=== PATIENT | female | born 1960 | race Caucasian/White ===

== ENCOUNTER 2018-09-02 09:08 | Inpatient (IN) | payer OTHER ==
[2018-09-02 10:00] LABS: ADD MAN DIFF? NO
[2018-09-02 10:03] LABS: BASOPHILS % 0.3 % (0.0-2.0); HEMATOCRIT 37.4 % (42.0-52.0); LYMPHOCYTES # 1.1 10^3/ul (0.8-2.9); LYMPHOCYTES % 15.6 % (15.0-51.0); MEAN CORPUSCULAR HEMOGLOBIN 31.3 pg (29.0-33.0); MEAN CORPUSCULAR HGB CONC 32.1 g/dl (32.0-37.0); MEAN CORPUSCULAR VOLUME 97.7 fl (82.0-101.0); MEAN PLATELET VOLUME 10.7 fl (7.4-10.4); MONOCYTE # 0.2 10^3/ul (0.3-0.9); MONOCYTES % 2.7 % (0.0-11.0); NEUTROPHIL # 5.6 10^3/ul (1.6-7.5); NEUTROPHILS % 80.5 % (39.0-77.0); PLATELET COUNT 261 10^3/UL (140-415); RED BLOOD COUNT 3.83 10^6/ul (4.70-6.10); RED CELL DISTRIBUTION WIDTH 12.9 % (11.5-14.5)
[2018-09-02] MEDS: ONDANSETRON 4 MG INJ IV (10:12)
[2018-09-02 10:28] LABS: ANION GAP 26 (5-13); BLOOD UREA NITROGEN 82 mg/dl (7-20); CARBON DIOXIDE 12 mmol/L (21-31); CHLORIDE 94 mmol/L (97-110); CHOL/HDL RATIO 4.5 RATIO; CHOLESTEROL 127 mg/dl (100-200); CREATININE 11.03 mg/dl (0.61-1.24); Estimated GFR 5 mL/min (>60); GLUCOSE 283 mg/dl (70-220); HDL CHOLESTEROL 28 mg/dl (30-78); LDL CHOLESTEROL,CALCULATED 61 mg/dl; SODIUM 132 mmol/L (135-144); TRIGLYCERIDES 189 mg/dl (0-149)
[2018-09-02 10:37] LABS: POTASSIUM 7.1 mmol/L (3.5-5.1)
[2018-09-02 10:38] LABS: ADD UMIC YES; UR ASCORBIC ACID NEGATIVE (NEGATIVE); UR BILIRUBIN (Dip) NEGATIVE (NEGATIVE); UR BLOOD (Dip) 1+ mg/dL (NEGATIVE); UR CLARITY CLEAR (CLEAR); UR COLOR STRAW (YELLOW); UR GLUCOSE (Dip) 3+ mg/dL (NEGATIVE); UR KETONES (Dip) 1+ mg/dL (NEGATIVE); UR LEUKOCYTE ESTERASE (Dip) NEGATIVE Leu/ul (NEGATIVE); UR NITRITE (Dip) NEGATIVE (NEGATIVE); UR RBC 1 /HPF (0-5); UR SPECIFIC GRAVITY (Dip) 1.007 (1.003-1.030); UR TOTAL PROTEIN (Dip) 1+ mg/dl (NEGATIVE); UR UROBILINOGEN (Dip) NEGATIVE (NEGATIVE); UR WBC 2 /HPF (0-5)
[2018-09-02 10:39] LABS: TROPONIN-I 0.074 ng/ml (0.000-0.120)
[2018-09-02 10:40] LABS: INR 1.19; PROTIME 15.2 Sec (11.9-14.9); PT RATIO 1.2
[2018-09-02 10:41] LABS: PARTIAL THROMBOPLASTIN TIME 29.2 Sec (23.0-35.0)
[2018-09-02] MEDS: CA CHLORIDE 10% 10 ML SYRINGE IV (10:48)
[2018-09-02] MEDS: INSULIN REGULAR, HUMAN 100 UNIT/1 ML 3ML VIAL IVP (10:48)
[2018-09-02] MEDS: DEXTROSE 50% 50 ML SYRINGE IV (10:49)
[2018-09-02] MEDS: SODIUM POLYSTYRENE 15 GM KIT (POWDER + SORBITOL) PO (10:49)
[2018-09-02] MEDS: NA BICARBONATE 8.4% 50 ML SYG IV (10:50)
[2018-09-02] MEDS ORDERED: ACETAMINOPHEN 325 MG TAB PO (11:00)
[2018-09-02] MEDS ORDERED: ONDANSETRON 4 MG INJ IV ×2 (11:00→11:30)
[2018-09-02] MEDS: ALBUTEROL 0.5% (NEB) 2.5 MG/0.5 ML AMP INH (11:01)
[2018-09-02 11:08] LABS: AMPHETAMINE/METHAMPHETAMINE NEGATIVE (NEGATIVE); BARBITURATES NEGATIVE (NEGATIVE); BENZODIAZEPINES NEGATIVE (NEGATIVE); CANNABINOIDS NEGATIVE (NEGATIVE); COCAINE NEGATIVE (NEGATIVE); OPIATES NEGATIVE (NEGATIVE)
[2018-09-02] MEDS ORDERED: MECLIZINE 25 MG TAB PO (11:30)
[2018-09-02] MEDS ORDERED: MECLIZINE 12.5 MG TAB PO (11:30)
[2018-09-02] MEDS: morphine 4 MG/ML VIAL IV (11:38)
[2018-09-02 11:41] LABS: HEMOGLOBIN A1C 8.1 % (0-5.9)
[2018-09-02 12:34] LABS: AADO2 Arterial 22.9 mmHg (7.0-24.0); Allen Test ACCEPTAB; Arterial Base Excess -18.7 mmol/L (-3.0-3); Arterial Blood Gas Oxygen Sat 94.6 mmHG (95.0-98.0); Arterial COHb 0.3 % (0.0-3.0); Arterial Fraction of Oxyhgb 93.8 % (93.0-99.0); Arterial HCO3 9.7 mmol/L (22.0-26.0); Arterial MetHb 0.5 % (0.0-1.5); Arterial pCO2 31.8 mmhg (35-45); MODE ROOM AIR; Site Right Radial
[2018-09-02 12:43] LABS: ANION GAP 30 (5-13); BLOOD UREA NITROGEN 83 mg/dl (7-20); CALCIUM 10.4 mg/dl (8.4-10.2); CHLORIDE 96 mmol/L (97-110); CREATININE 11.25 mg/dl (0.44-1.00); Estimated GFR 3 mL/min (>60); GLUCOSE 304 mg/dl (70-220); SODIUM 135 mmol/L (135-144)
[2018-09-02 12:45] LABS: POTASSIUM 5.3 mmol/L (3.5-5.1)
[2018-09-02 12:50] LABS: CARBON DIOXIDE 9 mmol/L (21-31)
[2018-09-02] MEDS ORDERED: GLUCOSE GEL 15 GRAM TUBE PO ×2 (13:00)
[2018-09-02] MEDS ORDERED: GLUCOSE GEL 15 GRAM TUBE BUCCAL (13:00)
[2018-09-02] MEDS ORDERED: GLUCAGON 1 MG INJ IM (13:00)
[2018-09-02] MEDS ORDERED: DEXTROSE 50% 50 ML SYRINGE IV (13:00)
[2018-09-02] MEDS: ISOSORBIDE MONONITRATE(SR)30 MG TAB PO (13:25)
[2018-09-02] MEDS: FAMOTIDINE 20 MG TAB PO (13:32)
[2018-09-02] MEDS: INSULIN ASPART [NOVOLOG] 3 ML PEN SC ×4 (13:32→21:24)
[2018-09-02] MEDS: ASPIRIN (EC) 81 MG TAB PO (13:32)
[2018-09-02] MEDS: METOPROLOL (XL) 100 MG TAB PO ×2 (13:33→20:49)
[2018-09-02] MEDS: OXYBUTYNIN (XL) 5 MG TAB PO (13:33)
[2018-09-02] MEDS: FENOFIBRATE 145 MG TAB PO (13:34)
[2018-09-02] MEDS: SOD CHLORIDE 0.9% 1,000 ML IV (13:39)
[2018-09-02] MEDS: AMLODIPINE 10 MG TAB PO (14:27)
[2018-09-02] MEDS ORDERED: FENTAnyl 50 MCG/ML VIAL (14:46)
[2018-09-02] MEDS ORDERED: LIDOCAINE 1% (MDV) 20 ML INJ (14:46)
[2018-09-02] MEDS ORDERED: MIDAZOLAM 1 MG/ML 2 ML INJ (14:46)
[2018-09-02] MEDS ORDERED: HEPARIN 1000 UNITS/ML 10 ML INJ (14:46)
[2018-09-02] MEDS ORDERED: HEPARIN 1000 UNITS/NS (A-LINE) 1,000 ML (14:46)
[2018-09-02] MEDS ORDERED: SODIUM CHLORIDE 0.9% 1L BAG IV (15:00)
[2018-09-02] MEDS ORDERED: HEPARIN 1000 UNITS/ML 10 ML INJ CATHETER (15:00)
[2018-09-02] MEDS ORDERED: ALBUMIN HUMAN 25% 100 ML IV (15:00)
[2018-09-02] MEDS: SODIUM BICARBONATE (IV ADD) 100 MEQ in SOD CHLORIDE 0.45% 900 ML IV (16:42)
[2018-09-02 17:19] LABS: POTASSIUM 6.1 mmol/L (3.5-5.1)
[2018-09-02] MEDS: ACARBOSE 50 MG TAB PO (18:00)
[2018-09-02] MEDS: ATORVASTATIN 10 MG TAB PO (20:49)
[2018-09-02] MEDS ORDERED: ZOLPIDEM 5 MG TAB PO (21:00)
[2018-09-02 21:04] LABS: HEPATITIS B SURFACE ANTIGEN NEGATIVE (NEGATIVE)
[2018-09-02] MEDS: MANNITOL 25% 50 ML IV (21:04)
[2018-09-02] MEDS: HEPARIN 1000 UNITS/ML 10 ML INJ CATHETER (23:30)
[2018-09-03] MEDS: SODIUM BICARBONATE (IV ADD) 100 MEQ in SOD CHLORIDE 0.45% 900 ML IV ×3 (01:00→21:00)
[2018-09-03 02:03] LABS: SODIUM,URINE RANDOM 92 mmol/L (30-90)
[2018-09-03 02:05] LABS: CREATININE,URINE RANDOM 30.51 mg/dl (20-320); PROTEIN/CREAT RATIO 2.26 RATIO
[2018-09-03 06:20] LABS: HAAIG REFLEX REFLEX FILED
[2018-09-03 06:49] LABS: BLOOD UREA NITROGEN 66 mg/dl (7-20); CALCIUM 8.9 mg/dl (8.4-10.2); CHLORIDE 98 mmol/L (97-110); CREATININE 7.75 mg/dl (0.44-1.00); Estimated GFR 5 mL/min (>60); GLUCOSE 198 mg/dl (70-220); POTASSIUM 4.8 mmol/L (3.5-5.1); SODIUM 139 mmol/L (135-144)
[2018-09-03 06:53] LABS: CREATINE KINASE 121 IU/L (23-200)
[2018-09-03 06:53] LABS: URIC ACID 9.2 mg/dl (3.1-7.9)
[2018-09-03] MEDS: LEVOTHYROXINE 75 MCG TAB PO (07:00)
[2018-09-03 07:11] LABS: HEPATITIS B SURFACE ANTIGEN NEGATIVE (NEGATIVE)
[2018-09-03 07:28] LABS: HEPATITIS B CORE ANTIBODY NEGATIVE (NEGATIVE); HEPATITIS C VIRAL ANTIBODY NEGATIVE (NEGATIVE); HIV 1&2 ANTIBODY NEGATIVE (NEGATIVE)
[2018-09-03 08:18] LABS: ANION GAP 16 (5-13)
[2018-09-03 08:20] LABS: CARBON DIOXIDE 25 mmol/L (21-31)
[2018-09-03] MEDS: FAMOTIDINE 20 MG TAB PO (08:30)
[2018-09-03] MEDS: ISOSORBIDE MONONITRATE(SR)30 MG TAB PO (08:30)
[2018-09-03] MEDS: ASPIRIN (EC) 81 MG TAB PO (08:31)
[2018-09-03] MEDS: METOPROLOL (XL) 100 MG TAB PO ×2 (08:31→19:43)
[2018-09-03] MEDS: AMLODIPINE 10 MG TAB PO (08:31)
[2018-09-03] MEDS: FENOFIBRATE 145 MG TAB PO (08:31)
[2018-09-03] MEDS: ACARBOSE 50 MG TAB PO ×3 (08:43→17:27)
[2018-09-03] MEDS: INSULIN ASPART [NOVOLOG] 3 ML PEN SC ×7 (08:43→21:00)
[2018-09-03] MEDS: HEPARIN 1000 UNITS/ML 10 ML INJ CATHETER (13:13)
[2018-09-03] MEDS: ACETAMINOPHEN 325 MG TAB PO ×2 (14:56→23:33)
[2018-09-03] MEDS: OXYBUTYNIN (XL) 5 MG TAB PO (16:25)
[2018-09-03] MEDS: DEXTROSE 50% 50 ML SYRINGE IV (19:38)
[2018-09-03] MEDS: ATORVASTATIN 10 MG TAB PO (19:39)
[2018-09-03] MEDS: HEPARIN 5,000 UNIT/1 ML VIAL SC (21:00)
[2018-09-04] MEDS: LEVOTHYROXINE 75 MCG TAB PO (05:11)
[2018-09-04] MEDS: SODIUM BICARBONATE (IV ADD) 100 MEQ in SOD CHLORIDE 0.45% 900 ML IV ×2 (05:11→18:24)
[2018-09-04 07:00] LABS: ADD MAN DIFF? NO; BASOPHILS % 0.6 % (0.0-2.0); EOSINOPHILS # 0.1 10^3/ul (0.0-0.5); HEMATOCRIT 32.1 % (37.0-47.0); HEMOGLOBIN 10.3 g/dl (12.0-16.0); LYMPHOCYTES # 2.2 10^3/ul (0.8-2.9); LYMPHOCYTES % 43.2 % (15.0-51.0); MEAN CORPUSCULAR HEMOGLOBIN 30.5 pg (29.0-33.0); MEAN CORPUSCULAR HGB CONC 32.1 g/dl (32.0-37.0); MEAN PLATELET VOLUME 10.6 fl (7.4-10.4); MONOCYTE # 0.5 10^3/ul (0.3-0.9); MONOCYTES % 10.4 % (0.0-11.0); NEUTROPHIL # 2.2 10^3/ul (1.6-7.5); NEUTROPHILS % 43.4 % (39.0-77.0); PLATELET COUNT 181 10^3/UL (140-415); RED BLOOD COUNT 3.38 10^6/ul (4.20-5.40); RED CELL DISTRIBUTION WIDTH 12.9 % (11.5-14.5)
[2018-09-04 07:08] LABS: ALANINE AMINOTRANSFERASE 20 IU/L (13-69); ALBUMIN 3.5 g/dl (3.3-4.9); ALBUMIN/GLOBULIN RATIO 0.94; ALKALINE PHOSPHATASE 58 IU/L (42-121); ANION GAP 8 (5-13); ASPARTATE AMINO TRANSFERASE 29 IU/L (15-46); BILIRUBIN,INDIRECT 0.5 mg/dl (0-1.1); BILIRUBIN,TOTAL 0.5 mg/dl (0.2-1.3); BLOOD UREA NITROGEN 35 mg/dl (7-20); CALCIUM 8.8 mg/dl (8.4-10.2); CARBON DIOXIDE 34 mmol/L (21-31); CHLORIDE 95 mmol/L (97-110); Estimated GFR 13 mL/min (>60); GLUCOSE 172 mg/dl (70-220); MAGNESIUM 1.8 mg/dl (1.7-2.5); PHOSPHORUS 4.1 mg/dl (2.5-4.9); POTASSIUM 3.7 mmol/L (3.5-5.1); SODIUM 137 mmol/L (135-144); TOTAL PROTEIN 7.2 g/dl (6.1-8.1)
[2018-09-04] MEDS: FAMOTIDINE 20 MG TAB PO (08:26)
[2018-09-04] MEDS: FENOFIBRATE 145 MG TAB PO (08:26)
[2018-09-04] MEDS: AMLODIPINE 10 MG TAB PO (08:27)
[2018-09-04] MEDS: OXYBUTYNIN (XL) 5 MG TAB PO (08:27)
[2018-09-04] MEDS: ISOSORBIDE MONONITRATE(SR)30 MG TAB PO (08:27)
[2018-09-04] MEDS: METOPROLOL (XL) 100 MG TAB PO ×2 (08:28→21:00)
[2018-09-04] MEDS: ASPIRIN (EC) 81 MG TAB PO (08:28)
[2018-09-04] MEDS: HEPARIN 5,000 UNIT/1 ML VIAL SC ×2 (08:36→21:00)
[2018-09-04] MEDS: INSULIN ASPART [NOVOLOG] 3 ML PEN SC ×7 (08:36→21:00)
[2018-09-04] MEDS: ACARBOSE 50 MG TAB PO ×3 (08:43→17:59)
[2018-09-04] MEDS: ATORVASTATIN 10 MG TAB PO (22:16)
[2018-09-05] MEDS: ACETAMINOPHEN 325 MG TAB PO ×2 (00:31→23:57)
[2018-09-05] MEDS: SODIUM BICARBONATE (IV ADD) 100 MEQ in SOD CHLORIDE 0.45% 900 ML IV (03:00)
[2018-09-05 06:07] LABS: ADD MAN DIFF? NO
[2018-09-05 06:15] LABS: WHITE BLOOD COUNT 5.1 10^3/ul (4.8-10.8)
[2018-09-05 06:15] LABS: BASOPHILS % 0.8 % (0.0-2.0); EOSINOPHILS # 0.1 10^3/ul (0.0-0.5); EOSINOPHILS % 2.3 % (0.0-7.0); HEMOGLOBIN 10.5 g/dl (12.0-16.0); LYMPHOCYTES # 1.9 10^3/ul (0.8-2.9); LYMPHOCYTES % 36.4 % (15.0-51.0); MEAN CORPUSCULAR HEMOGLOBIN 31.5 pg (29.0-33.0); MEAN CORPUSCULAR HGB CONC 32.8 g/dl (32.0-37.0); MEAN CORPUSCULAR VOLUME 96.1 fl (82.0-101.0); MEAN PLATELET VOLUME 10.8 fl (7.4-10.4); MONOCYTE # 0.6 10^3/ul (0.3-0.9); NEUTROPHIL # 2.5 10^3/ul (1.6-7.5); NEUTROPHILS % 49.3 % (39.0-77.0); PLATELET COUNT 206 10^3/UL (140-415); RED BLOOD COUNT 3.33 10^6/ul (4.20-5.40); RED CELL DISTRIBUTION WIDTH 12.4 % (11.5-14.5)
[2018-09-05] MEDS: LEVOTHYROXINE 75 MCG TAB PO (06:16)
[2018-09-05 06:35] LABS: ALANINE AMINOTRANSFERASE 20 IU/L (13-69); ALBUMIN 3.7 g/dl (3.3-4.9); ALKALINE PHOSPHATASE 57 IU/L (42-121); ANION GAP 10 (5-13); ASPARTATE AMINO TRANSFERASE 35 IU/L (15-46); BILIRUBIN,INDIRECT 0.5 mg/dl (0-1.1); BILIRUBIN,TOTAL 0.5 mg/dl (0.2-1.3); BLOOD UREA NITROGEN 33 mg/dl (7-20); CALCIUM 9.3 mg/dl (8.4-10.2); CARBON DIOXIDE 30 mmol/L (21-31); CHLORIDE 99 mmol/L (97-110); CREATININE 2.55 mg/dl (0.44-1.00); Estimated GFR 19 mL/min (>60); GLUCOSE 162 mg/dl (70-220); MAGNESIUM 1.6 mg/dl (1.7-2.5); PHOSPHORUS 3.8 mg/dl (2.5-4.9); POTASSIUM 3.7 mmol/L (3.5-5.1); SODIUM 139 mmol/L (135-144); TOTAL PROTEIN 7.4 g/dl (6.1-8.1)
[2018-09-05] MEDS: INSULIN ASPART [NOVOLOG] 3 ML PEN SC ×7 (08:21→21:00)
[2018-09-05] MEDS: ACARBOSE 50 MG TAB PO ×3 (08:30→17:22)
[2018-09-05] MEDS: METOPROLOL (XL) 100 MG TAB PO ×2 (09:53→21:53)
[2018-09-05] MEDS: AMLODIPINE 10 MG TAB PO (09:53)
[2018-09-05] MEDS: ASPIRIN (EC) 81 MG TAB PO (09:53)
[2018-09-05] MEDS: FENOFIBRATE 145 MG TAB PO (09:54)
[2018-09-05] MEDS: OXYBUTYNIN (XL) 5 MG TAB PO (09:54)
[2018-09-05] MEDS: FAMOTIDINE 20 MG TAB PO (09:54)
[2018-09-05] MEDS: ISOSORBIDE MONONITRATE(SR)30 MG TAB PO (09:54)
[2018-09-05] MEDS: HEPARIN 5,000 UNIT/1 ML VIAL SC ×2 (10:00→21:51)
[2018-09-05] MEDS: ATORVASTATIN 10 MG TAB PO (21:52)
[2018-09-06 05:56] LABS: ADD MAN DIFF? NO
[2018-09-06 05:57] LABS: BASOPHILS % 0.8 % (0.0-2.0); EOSINOPHILS # 0.2 10^3/ul (0.0-0.5); EOSINOPHILS % 3.2 % (0.0-7.0); HEMATOCRIT 32.6 % (37.0-47.0); HEMOGLOBIN 10.8 g/dl (12.0-16.0); LYMPHOCYTES # 2.2 10^3/ul (0.8-2.9); LYMPHOCYTES % 44.4 % (15.0-51.0); MEAN CORPUSCULAR HEMOGLOBIN 31.8 pg (29.0-33.0); MEAN CORPUSCULAR HGB CONC 33.1 g/dl (32.0-37.0); MEAN CORPUSCULAR VOLUME 95.9 fl (82.0-101.0); MEAN PLATELET VOLUME 10.9 fl (7.4-10.4); MONOCYTE # 0.4 10^3/ul (0.3-0.9); MONOCYTES % 7.9 % (0.0-11.0); NEUTROPHIL # 2.2 10^3/ul (1.6-7.5); NEUTROPHILS % 43.5 % (39.0-77.0); PLATELET COUNT 207 10^3/UL (140-415); RED CELL DISTRIBUTION WIDTH 12.4 % (11.5-14.5)
[2018-09-06] MEDS: LEVOTHYROXINE 75 MCG TAB PO (06:10)
[2018-09-06 06:32] LABS: ALANINE AMINOTRANSFERASE 15 IU/L (13-69); ALBUMIN 3.7 g/dl (3.3-4.9); ALBUMIN/GLOBULIN RATIO 0.97; ALKALINE PHOSPHATASE 56 IU/L (42-121); ANION GAP 9 (5-13); ASPARTATE AMINO TRANSFERASE 29 IU/L (15-46); BILIRUBIN,INDIRECT 0.5 mg/dl (0-1.1); BILIRUBIN,TOTAL 0.5 mg/dl (0.2-1.3); BLOOD UREA NITROGEN 25 mg/dl (7-20); CALCIUM 9.7 mg/dl (8.4-10.2); CARBON DIOXIDE 28 mmol/L (21-31); CHLORIDE 104 mmol/L (97-110); Estimated GFR 29 mL/min (>60); GLUCOSE 185 mg/dl (70-220); MAGNESIUM 1.6 mg/dl (1.7-2.5); PHOSPHORUS 3.5 mg/dl (2.5-4.9); POTASSIUM 3.8 mmol/L (3.5-5.1); SODIUM 141 mmol/L (135-144); TOTAL PROTEIN 7.5 g/dl (6.1-8.1)
[2018-09-06] MEDS: INSULIN ASPART [NOVOLOG] 3 ML PEN SC ×7 (08:03→20:42)
[2018-09-06] MEDS: FAMOTIDINE 20 MG TAB PO (09:19)
[2018-09-06] MEDS: OXYBUTYNIN (XL) 5 MG TAB PO (09:19)
[2018-09-06] MEDS: AMLODIPINE 10 MG TAB PO (09:19)
[2018-09-06] MEDS: ISOSORBIDE MONONITRATE(SR)30 MG TAB PO (09:19)
[2018-09-06] MEDS: FENOFIBRATE 145 MG TAB PO (09:20)
[2018-09-06] MEDS: ACARBOSE 50 MG TAB PO ×3 (09:20→17:35)
[2018-09-06] MEDS: ASPIRIN (EC) 81 MG TAB PO (09:20)
[2018-09-06] MEDS: METOPROLOL (XL) 100 MG TAB PO ×2 (09:21→20:42)
[2018-09-06] MEDS: HEPARIN 5,000 UNIT/1 ML VIAL SC ×2 (09:27→20:49)
[2018-09-06] MEDS: ATORVASTATIN 10 MG TAB PO (20:42)
[2018-09-06] MEDS: ACETAMINOPHEN 325 MG TAB PO (23:22)
[2018-09-07 05:29] LABS: ADD MAN DIFF? NO
[2018-09-07 05:38] LABS: WHITE BLOOD COUNT 5.6 10^3/ul (4.8-10.8)
[2018-09-07 05:38] LABS: BASOPHILS % 0.7 % (0.0-2.0); EOSINOPHILS # 0.3 10^3/ul (0.0-0.5); EOSINOPHILS % 4.6 % (0.0-7.0); HEMATOCRIT 32.5 % (37.0-47.0); HEMOGLOBIN 10.5 g/dl (12.0-16.0); LYMPHOCYTES # 2.3 10^3/ul (0.8-2.9); MEAN CORPUSCULAR HEMOGLOBIN 31.6 pg (29.0-33.0); MEAN CORPUSCULAR HGB CONC 32.3 g/dl (32.0-37.0); MEAN CORPUSCULAR VOLUME 97.9 fl (82.0-101.0); MEAN PLATELET VOLUME 10.7 fl (7.4-10.4); MONOCYTE # 0.5 10^3/ul (0.3-0.9); NEUTROPHIL # 2.6 10^3/ul (1.6-7.5); NEUTROPHILS % 46.3 % (39.0-77.0); PLATELET COUNT 211 10^3/UL (140-415); RED BLOOD COUNT 3.32 10^6/ul (4.20-5.40); RED CELL DISTRIBUTION WIDTH 12.3 % (11.5-14.5)
[2018-09-07 05:58] LABS: ALANINE AMINOTRANSFERASE 17 IU/L (13-69); ALBUMIN 3.5 g/dl (3.3-4.9); ALBUMIN/GLOBULIN RATIO 0.92; ALKALINE PHOSPHATASE 52 IU/L (42-121); ANION GAP 7 (5-13); ASPARTATE AMINO TRANSFERASE 27 IU/L (15-46); BILIRUBIN,INDIRECT 0.3 mg/dl (0-1.1); BILIRUBIN,TOTAL 0.3 mg/dl (0.2-1.3); BLOOD UREA NITROGEN 24 mg/dl (7-20); CALCIUM 9.6 mg/dl (8.4-10.2); CARBON DIOXIDE 27 mmol/L (21-31); CHLORIDE 106 mmol/L (97-110); CREATININE 1.57 mg/dl (0.44-1.00); Estimated GFR 34 mL/min (>60); GLUCOSE 200 mg/dl (70-220); MAGNESIUM 1.7 mg/dl (1.7-2.5); PHOSPHORUS 3.7 mg/dl (2.5-4.9); SODIUM 140 mmol/L (135-144); TOTAL PROTEIN 7.3 g/dl (6.1-8.1)
[2018-09-07] MEDS: LEVOTHYROXINE 75 MCG TAB PO (06:57)
[2018-09-07] MEDS: INSULIN ASPART [NOVOLOG] 3 ML PEN SC ×7 (07:47→21:00)
[2018-09-07] MEDS: ACARBOSE 50 MG TAB PO ×3 (07:51→17:24)
[2018-09-07] MEDS: ASPIRIN (EC) 81 MG TAB PO (08:30)
[2018-09-07] MEDS: OXYBUTYNIN (XL) 5 MG TAB PO (08:30)
[2018-09-07] MEDS: METOPROLOL (XL) 100 MG TAB PO ×2 (08:31→21:04)
[2018-09-07] MEDS: FENOFIBRATE 145 MG TAB PO (08:31)
[2018-09-07] MEDS: ISOSORBIDE MONONITRATE(SR)30 MG TAB PO (08:31)
[2018-09-07] MEDS: FAMOTIDINE 20 MG TAB PO (08:31)
[2018-09-07] MEDS: AMLODIPINE 10 MG TAB PO (08:31)
[2018-09-07] MEDS: HEPARIN 5,000 UNIT/1 ML VIAL SC ×2 (08:36→21:09)
[2018-09-07] MEDS: ATORVASTATIN 10 MG TAB PO (21:03)
[2018-09-07] MEDS: ACETAMINOPHEN 325 MG TAB PO (21:12)
[2018-09-08 05:59] LABS: ADD MAN DIFF? NO
[2018-09-08 06:06] LABS: BASOPHILS % 0.6 % (0.0-2.0); EOSINOPHILS # 0.3 10^3/ul (0.0-0.5); EOSINOPHILS % 5.8 % (0.0-7.0); HEMATOCRIT 30.9 % (37.0-47.0); HEMOGLOBIN 9.8 g/dl (12.0-16.0); LYMPHOCYTES # 2.3 10^3/ul (0.8-2.9); MEAN CORPUSCULAR HEMOGLOBIN 31.3 pg (29.0-33.0); MEAN CORPUSCULAR HGB CONC 31.7 g/dl (32.0-37.0); MEAN CORPUSCULAR VOLUME 98.7 fl (82.0-101.0); MEAN PLATELET VOLUME 10.5 fl (7.4-10.4); MONOCYTE # 0.5 10^3/ul (0.3-0.9); MONOCYTES % 8.9 % (0.0-11.0); NEUTROPHIL # 2.3 10^3/ul (1.6-7.5); NEUTROPHILS % 42.3 % (39.0-77.0); PLATELET COUNT 233 10^3/UL (140-415); RED BLOOD COUNT 3.13 10^6/ul (4.20-5.40); RED CELL DISTRIBUTION WIDTH 12.4 % (11.5-14.5)
[2018-09-08 06:06] LABS: WHITE BLOOD COUNT 5.4 10^3/ul (4.8-10.8)
[2018-09-08] MEDS: LEVOTHYROXINE 75 MCG TAB PO (06:17)
[2018-09-08 06:34] LABS: ALANINE AMINOTRANSFERASE 18 IU/L (13-69); ALBUMIN 3.6 g/dl (3.3-4.9); ALBUMIN/GLOBULIN RATIO 1.02; ALKALINE PHOSPHATASE 48 IU/L (42-121); ANION GAP 6 (5-13); ASPARTATE AMINO TRANSFERASE 23 IU/L (15-46); BILIRUBIN,INDIRECT 0.3 mg/dl (0-1.1); BILIRUBIN,TOTAL 0.3 mg/dl (0.2-1.3); BLOOD UREA NITROGEN 23 mg/dl (7-20); CALCIUM 9.9 mg/dl (8.4-10.2); CARBON DIOXIDE 27 mmol/L (21-31); CHLORIDE 108 mmol/L (97-110); CREATININE 1.52 mg/dl (0.44-1.00); Estimated GFR 35 mL/min (>60); GLUCOSE 171 mg/dl (70-220); MAGNESIUM 1.7 mg/dl (1.7-2.5); PHOSPHORUS 3.6 mg/dl (2.5-4.9); POTASSIUM 4.4 mmol/L (3.5-5.1); SODIUM 141 mmol/L (135-144); TOTAL PROTEIN 7.1 g/dl (6.1-8.1)
[2018-09-08] MEDS: ACARBOSE 50 MG TAB PO (07:44)
[2018-09-08] MEDS: INSULIN ASPART [NOVOLOG] 3 ML PEN SC ×2 (07:55)
[2018-09-08] MEDS: AMLODIPINE 10 MG TAB PO (08:39)
[2018-09-08] MEDS: ASPIRIN (EC) 81 MG TAB PO (08:39)
[2018-09-08] MEDS: METOPROLOL (XL) 100 MG TAB PO (08:39)
[2018-09-08] MEDS: ISOSORBIDE MONONITRATE(SR)30 MG TAB PO (08:39)
[2018-09-08] MEDS: OXYBUTYNIN (XL) 5 MG TAB PO (08:39)
[2018-09-08] MEDS: FAMOTIDINE 20 MG TAB PO (08:40)
[2018-09-08] MEDS: FENOFIBRATE 145 MG TAB PO (08:40)
[2018-09-08] MEDS: HEPARIN 5,000 UNIT/1 ML VIAL SC (08:51)
== END 2018-09-08 11:30 | disposition home or self-care (01) | DRG 683 ==
LOC: E/R 09:08 → 6WM 10:46
PROC: 02H633Z Insertion of Infusion Device into Right Atrium, Percutaneous Approach (ICD-10-PCS; principal; 2018-09-02 14:40)
PROC: B214YZZ Fluoroscopy of Right Heart using Other Contrast (ICD-10-PCS; 2018-09-02 14:40)
PROC: B543ZZA Ultrasonography of Right Jugular Veins, Guidance (ICD-10-PCS; 2018-09-02 14:40)
PROC: 4A033R1 Measurement of Arterial Saturation, Peripheral, Percutaneous Approach (ICD-10-PCS; 2018-09-02 14:40)
PROC: 5A1D70Z Performance of Urinary Filtration, Intermittent, Less than 6 Hours Per Day (ICD-10-PCS; 2018-09-02 14:40)
DX: N17.0 Acute kidney failure with tubular necrosis (principal); E87.2 Acidosis; G93.49 Other encephalopathy; I12.9 Hypertensive chronic kidney disease with stage 1 through stage 4 chronic kidney disease, or unspecified chronic kidney disease; N18.3 Chronic kidney disease, stage 3 (moderate); E78.5 Hyperlipidemia, unspecified; D63.1 Anemia in chronic kidney disease; E86.0 Dehydration; E11.22 Type 2 diabetes mellitus with diabetic chronic kidney disease; E78.00 Pure hypercholesterolemia, unspecified; E87.5 Hyperkalemia; E03.9 Hypothyroidism, unspecified; I25.10 Atherosclerotic heart disease of native coronary artery without angina pectoris; E11.21 Type 2 diabetes mellitus with diabetic nephropathy; Z79.4 Long term (current) use of insulin; Z79.82 Long term (current) use of aspirin
CPT/HCPCS: 36600; 70450; 71045; 76775; 76937; 80048; 80053; 80061; 80307; 81001; 81003; 82550; 82570; 82803; 82962; 83036; 83735; 84100; 84132; 84300; 84484; 84560; 85025; 85610; 85730; 86703; 86704; 86709; 86803; 87340; 89190; 90935; 92610; 93005; 94664; 96374; 99285-25